=== PATIENT | male | born 2000 | race Two or more races ===

== ENCOUNTER 2021-02-19 15:17 | Emergency (ER) | payer OTHER ==
[2021-02-19 15:23] VITALS: BP 138/95; PULSE 91; RESP 18; TEMP 98
--- NOTE | 2021-02-19 15:47 | ED ---
General Adult HPI - General Chief complaint: Anxiety Stated complaint: Seizure, anxiety Time Seen by Provider: 02/19/21 15:25 Source: patient Mode of arrival: ambulatory Limitations: no limitations - History of Present Illness Initial comments: Dictation was produced using [employer] dictation software. please excuse any grammatical, word or spelling errors. Chief Complaint: 20-year-old male with anxiety reaction History of Present Illness: Is a 20-year-old male presents to the emergency Department with anxiety reaction. Patient has history of seizures he is noncompliant with his seizure medicines. Seizures been managed by his primary care doctor. State his urine emergency department because he feels anxious. He is anxious about his personal life. He recently moved here from an outside city. States that he had a seizure episode yesterday. He understands that he supposed be taking his seizure medicines. States that he's been feeling so anxious recently. He had his covid vaccination yesterday has been feeling some mild L effects from that including poor appetite and fatigue. The ROS documented in this emergency department record has been reviewed and confirmed by me. Those systems with pertinent positive or negative responses have been documented in the HPI. All other systems are other negative and/or noncontributory. PHYSICAL EXAM: General Impression: Alert and oriented x3, not in acute distress HEENT: Normocephalic atraumatic, extra-ocular movements intact, pupils equal and reactive to light bilaterally, mucous membranes moist. Cardiovascular: Heart regular rate and rhythm Chest: Able to complete full sentences, no retractions, no tachypnea Abdomen: abdomen soft, non-tender, non-distended, no organomegaly Musculoskeletal: Pulses present and equal in all extremities, no peripheral edema Motor: no focal deficits noted Neurological: CN II-XII grossly intact, no focal motor or sensory deficits noted Skin: Intact with no visualized rashes Psych: Normal affect and mood ED course: 20-year-old well-appearing male presents emergency department for anxiety reaction. Vital signs upon arrival are within acceptable limits. Physical examination is benign. Patient given 2 small tabs of anxiolytics. Strongly encouraged to follow-up with his primary care doctor for restarting his seizure medicines and to manage his anxiety and outpatient basis. - Related Data Previous Rx's Medication Instructions Recorded ALPRAZolam [Xanax] 0.5 mg PO DAILY PRN 2 Days #2 tab 02/19/21 Allergies Allergy/AdvReac Type Severity Reaction Status Date / Time acetaminophen Allergy Unknown Verified 02/19/21 15:22 Childhood Penicillins Allergy Unknown Verified 02/19/21 15:22 Childhood Review of Systems ROS Statement: Those systems with pertinent positive or pertinent negative responses have been documented in the HPI. ROS Other: All systems not noted in ROS Statement are negative. Past Medical History Past Medical History: Asthma, Hypertension, Seizure Disorder Past Surgical History: No Surgical Hx Reported Past Psychological History: Anxiety Smoking Status: Vaper Past Alcohol Use History: None Reported Past Drug Use History: None Reported General Exam Limitations: no limitations Course Vital Signs 02/19/21 15:19 Temperature 98.0 F Pulse Rate 91 Respiratory 18 Rate Blood Pressure 138/95 O2 Sat by Pulse 99 Oximetry Disposition Clinical Impression: Acute anxiety Disposition: HOME SELF-CARE Condition: Good Instructions (If sedation given, give patient instructions): Generalized Anxiety Disorder (ED) Prescriptions: ALPRAZolam [Xanax] 0.5 mg PO DAILY PRN 2 Days #2 tab PRN Reason: anxiety reaction Is patient prescribed a controlled substance at d/c from ED?: Yes If prescribed controlled substance>3 days was MAPS reviewed?: Prescribed <3 Days Referrals: Nonstaff,Physician [Primary Care Provider] - 1-2 days
== END 2021-02-19 16:03 | disposition home or self-care (01) ==
LOC: EC 15:17
DX: F41.9 Anxiety disorder, unspecified (principal); J45.909 Unspecified asthma, uncomplicated; I10 Essential (primary) hypertension
CPT/HCPCS: 99283

== ENCOUNTER 2021-03-16 20:31 | Emergency (ER) | payer OTHER ==
[2021-03-16 20:48] VITALS: BP 126/81; PULSE 104; RESP 20; TEMP 98.2
--- NOTE | 2021-03-16 22:17 | XR ---
EXAMINATION TYPE: XR knee complete RT DATE OF EXAM: 03/16/2021 COMPARISON: NONE HISTORY: Pain TECHNIQUE: 3 views FINDINGS: I see no fracture nor dislocation. Joint spaces are normal. There are no pathologic calcifi cations. There is no sign of joint effusion. IMPRESSION: Negative right knee exam. No fracture.
--- NOTE | 2021-03-17 00:28 | ED ---
Lower Extremity Injury HPI - General Chief Complaint: Extremity Injury, Lower Stated Complaint: knee injury Time Seen by Provider: 03/16/21 20:51 Source: patient Mode of arrival: ambulatory Limitations: no limitations - History of Present Illness Initial Comments: 20-year-old male presents emergency Department with a chief complaint of right knee pain. This occurred about 2 hours prior to arrival when his friend injured his right knee causing a valgus force. Patient reports she did have previous injuries to that knee that was never surgically repaired. Patient reports now pain with ablation and full extension. Denies any paresthesias or weakness. Reports pain is 6/10. Sharp in nature. Denies any swelling erythema or ecchymosis to the region - Related Data Previous Rx's Medication Instructions Recorded ALPRAZolam [Xanax] 0.5 mg PO DAILY PRN 2 Days #2 tab 02/19/21 Allergies Allergy/AdvReac Type Severity Reaction Status Date / Time acetaminophen Allergy Unknown Verified 02/19/21 15:22 Childhood Penicillins Allergy Unknown Verified 02/19/21 15:22 Childhood Review of Systems ROS Statement: Those systems with pertinent positive or pertinent negative responses have been documented in the HPI. ROS Other: All systems not noted in ROS Statement are negative. Past Medical History Past Medical History: Asthma, Hypertension, Seizure Disorder Past Surgical History: No Surgical Hx Reported Past Psychological History: Anxiety Smoking Status: Vaper Past Alcohol Use History: None Reported Past Drug Use History: None Reported General Exam Limitations: no limitations General appearance: alert, in no apparent distress Head exam: Present: atraumatic, normocephalic, normal inspection Eye exam: Present: normal appearance, PERRL, EOMI Pupils: Present: normal accommodation ENT exam: Present: normal exam, normal oropharynx, mucous membranes moist Neck exam: Present: normal inspection, full ROM Respiratory exam: Present: normal lung sounds bilaterally. Absent: respiratory distress Cardiovascular Exam: Present: regular rate, normal rhythm, normal heart sounds Extremities exam: Present: normal inspection, full ROM, tenderness (Right lateral knee tenderness), normal capillary refill, other (Palpable DP and PT bilaterally. Sensation intact in the right lower extremity.). Absent: calf tenderness Back exam: Present: normal inspection, full ROM Neurological exam: Present: alert, oriented X3 Psychiatric exam: Present: normal affect, normal mood Skin exam: Present: warm, dry, intact, normal color Course Vital Signs 03/16/21 20:45 Temperature 98.2 F Pulse Rate 104 H Respiratory 20 Rate Blood Pressure 126/81 O2 Sat by Pulse 99 Oximetry Medical Decision Making - Medical Decision Making 20-year-old male presents to emergency Department with a chief complaint right knee pain. On Physical examination, is neurovascularly intact. I did offer analgesia, he declined. While waiting for the x-ray results of the knee, patient eloped Disposition Clinical Impression: Right knee injury, Right knee sprain Disposition: HOME SELF-CARE Condition: Stable Instructions (If sedation given, give patient instructions): Knee Sprain (ED) Additional Instructions: Please return to the Emergency Department if symptoms worsen or any other concerns.. Follow with marketing support specialist. Is patient prescribed a controlled substance at d/c from ED?: No Referrals: Nonstaff,Physician [Primary Care Provider] - 1-2 days bL Taveras DO [Doctor of Osteopathic Medicine] - 1-2 days Time of Disposition: 00:28
== END 2021-03-16 22:20 | disposition home or self-care (01) ==
LOC: EC 20:31
DX: S83.91XA Sprain of unspecified site of right knee, initial encounter (principal); J45.909 Unspecified asthma, uncomplicated; I10 Essential (primary) hypertension; F41.9 Anxiety disorder, unspecified
CPT/HCPCS: 99283

== ENCOUNTER 2021-06-20 13:43 | Emergency (ER) | payer OTHER ==
[2021-06-20] MEDS ORDERED: SODIUM CHLORIDE 0.9% 1,000 ML IV STA (16:41)
--- NOTE | 2021-06-20 17:09 | XR ---
EXAMINATION TYPE: XR chest 2V DATE OF EXAM: 06/20/2021 COMPARISON: NONE HISTORY: Cough and fever TECHNIQUE: Frontal and lateral views of the chest are obtained. FINDINGS: There is no focal air space opacity, pleural effusion, or pneumothorax seen. The cardiac silhouette size is within normal limits. The osseous structures are intact. Device overlying the le ft chest anterior subcutaneous soft tissue seen. IMPRESSION: No acute cardiopulmonary process.
[2021-06-20 17:23] LABS: Basophils # (A) 0.4 k/uL (0-0.2); Basophils % (A) 2 %; Eosinophils % (A) 0 %; HCT 54.2 % (39.0-53.0); Hyperchromasia Slight; Lymphocytes # (A) 1.9 k/uL (1.0-4.8); Lymphocytes % (A) 11 %; MCH 29.3 pg (25.0-35.0); MCHC 35.5 g/dL (31.0-37.0); MCV 82.6 fL (80.0-100.0); Mean Platelet Volume 7.2; Monocytes # (A) 1.2 k/uL (0-1.0); Monocytes % (A) 7 %; Neutrophils # (A) 13.3 k/uL (1.3-7.7); Neutrophils % (A) 78 %; Platelet Count 261 k/uL (150-450); RBC 6.57 m/uL (4.30-5.90); RDW 12.9 % (11.5-15.5); WBC 17.2 k/uL (4.0-11.0)
[2021-06-20 17:31] LABS: ALT 81 U/L (4-49); AST 49 U/L (17-59); African American GFR (CKD) >90 (>60 ml/min/1.73 sqM); Albumin 4.6 g/dL (3.5-5.0); Alkaline Phosphatase 64 U/L (38-126); Anion Gap 12 mmol/L; Blood Urea Nitrogen 18 mg/dL (9-20); Calcium 10.1 mg/dL (8.4-10.2); Carbon Dioxide 28 mmol/L (22-30); Chloride 100 mmol/L (98-107); Glucose 96 mg/dL (74-99); Non-African American GFR(CKD) >90 (>60 ml/min/1.73 sqM); Potassium 4.6 mmol/L (3.5-5.1); Sodium 140 mmol/L (137-145); Total Bilirubin 0.6 mg/dL (0.2-1.3)
[2021-06-20 17:42] LABS: HGB 19.2 gm/dL (13.0-17.5)
[2021-06-20 18:29] VITALS: BP 138/74; PULSE 84; RESP 16
--- NOTE | 2021-06-20 18:43 | ED ---
URI HPI - General Chief Complaint: Upper Respiratory Infection Stated Complaint: ANTHONY,Dizziness,Fever Time Seen by Provider: 06/20/21 16:25 Source: patient, RN notes reviewed, old records reviewed Mode of arrival: ambulatory Limitations: no limitations - History of Present Illness Initial Comments: Patient is a 20-year-old transgender male presenting to the emergency Department with complaints of a cough, body aches and feeling weaker over the past week. Patient states he went to urgent care twice over the past week, had multiple covid and flu tests and they were all negative. Patient was prescribed azithromycin and steroids, he is currently still on these but he came in today because he continues to feel weak and he felt like he might pass out at work today. He continues to have a cough, generalized body aches. No fevers. He does have chills. He does have history mild asthma, no shortness of breath today. He denies abdominal pain, nausea or vomiting, no diarrhea. He denies any areas of specific pains. He has no further complaints. Upon arrival to the ER, his vitals are stable. - Related Data Home Medications Medication Instructions Recorded Confirmed Azithromycin [Zithromax Z-pack (6 See Taper PO DIRECTED 06/20/21 06/20/21 tabs)] Promethaz-Cod 6.25-10 mg/5 ml 5 ml PO Q6HR PRN 06/20/21 06/20/21 [Phenergan with Codeine] Testosterone Cypionate 200 mg IM Q14D 06/20/21 06/20/21 [Depo-Testosterone] Previous Rx's Medication Instructions Recorded Albuterol Inhaler [Ventolin Hfa 1 puff INHALATION RT-TID PRN #8 gm 06/20/21 Inhaler] Allergies Allergy/AdvReac Type Severity Reaction Status Date / Time acetaminophen Allergy Unknown Verified 06/20/21 18:10 Childhood Penicillins Allergy Unknown Verified 06/20/21 18:10 Childhood Review of Systems ROS Statement: Those systems with pertinent positive or pertinent negative responses have been documented in the HPI. ROS Other: All systems not noted in ROS Statement are negative. Past Medical History Past Medical History: Asthma, Hypertension, Seizure Disorder History of Any Multi-Drug Resistant Organisms: None Reported Past Surgical History: No Surgical Hx Reported Past Psychological History: Anxiety Smoking Status: Vaper Past Alcohol Use History: None Reported Past Drug Use History: None Reported General Exam - General Exam Comments Initial Comments: GENERAL: Patient is well-developed and well-nourished. Patient is nontoxic and in no acute distress. HEAD: Atraumatic, normocephalic. EYES: Pupils equal round and reactive to light, extraocular movements intact, sclera anicteric, conjunctiva are normal. Eyelids were unremarkable. ENT: TMs normal, nares patent, oropharynx clear without exudates. Moist mucous membranes. NECK: Normal range of motion, supple without lymphadenopathy or JVD. LUNGS: Unlabored respirations. Breath sounds clear to auscultation bilaterally and equal. No wheezes rales or rhonchi. HEART: Regular rate and rhythm without murmurs, rubs or gallops. ABDOMEN: Soft, nontender, normoactive bowel sounds. No guarding, no rebound. No masses appreciated. MUSCULOSKELETAL: Normal extremities with adequate strength and normal range of motion, no pitting or edema. No clubbing or cyanosis. NEUROLOGICAL: Patient is alert and oriented x 3. SKIN: Warm, Dry, normal turgor, no rashes or lesions noted. Limitations: no limitations Course Vital Signs 06/20/21 06/20/21 14:26 18:28 Temperature 98.5 F 98.1 F Pulse Rate 102 H 84 Respiratory 20 16 Rate Blood Pressure 142/86 138/74 O2 Sat by Pulse 97 97 Oximetry Procedures - [place] Protocol (Time Out) Nurse: Jacqueline Jimenez Medical Decision Making - Medical Decision Making Patient is a 20-year-old male here with upper respiratory complaints over the past week. No fevers, his vitals are stable. He is currently on azithromycin and steroid pack. He's had negative Covid test and flu test this past week. His rapid Covid test today is negative. Chest x-ray showed no acute abnormality. Patient had a presyncopal event at work today, did order basic labs. Labs revealed a white count of 17.2, this could be to his current steroid use. His hemoglobin returned high at 19.2. Everything else within normal limits. Patient denies his hemoglobin been elevated in the past. He does admit to being transgender, he takes testosterone for the past 2 years every 2 weeks. He denies being a smoker, he does vape. Denies any other drug use. Patient received some fluids here in the ER, is resting comfortably. His vitals remained stable. Patient states he does see his doctors regularly. I discussed these findings with him. I urged him to follow up with his primary care in the next few days. I will also give him referral to hematology. He is agreeable to this plan of care. Strict return parameters were discussed with the patient and he verbalized understanding. Case discussed with Dr. Zamora who is in agreement with this plan of care. - Lab Data Result diagrams: 06/20/21 17:02 06/20/21 17:02 Lab Results 06/20/21 06/20/21 06/20/21 Range/Units 14:32 17:02 17:02 WBC 17.2 H (4.0-11.0) k/uL RBC 6.57 H (4.30-5.90) m/uL Hgb 19.2 H* (13.0-17.5) gm/dL Hct 54.2 H (39.0-53.0) % MCV 82.6 (80.0-100.0) fL MCH 29.3 (25.0-35.0) pg MCHC 35.5 (31.0-37.0) g/dL RDW 12.9 (11.5-15.5) % Plt Count 261 (150-450) k/uL MPV 7.2 Neutrophils % 78 % Lymphocytes % 11 % Monocytes % 7 % Eosinophils % 0 % Basophils % 2 % Neutrophils # 13.3 H (1.3-7.7) k/uL Lymphocytes # 1.9 (1.0-4.8) k/uL Monocytes # 1.2 H (0-1.0) k/uL Eosinophils # 0.0 (0-0.7) k/uL Basophils # 0.4 H (0-0.2) k/uL Manual Slide Review Performed Hyperchromasia Slight Sodium 140 (137-145) mmol/L Potassium 4.6 (3.5-5.1) mmol/L Chloride 100 (98-107) mmol/L Carbon Dioxide 28 (22-30) mmol/L Anion Gap 12 mmol/L BUN 18 (9-20) mg/dL Creatinine 0.89 (0.66-1.25) mg/dL Est GFR (CKD-EPI)AfAm >90 (>60 ml/min/1.73 sqM) Est GFR (CKD-EPI)NonAf >90 (>60 ml/min/1.73 sqM) Glucose 96 (74-99) mg/dL Calcium 10.1 (8.4-10.2) mg/dL Total Bilirubin 0.6 (0.2-1.3) mg/dL AST 49 (17-59) U/L ALT 81 H (4-49) U/L Alkaline Phosphatase 64 (38-126) U/L Total Protein 8.0 (6.3-8.2) g/dL Albumin 4.6 (3.5-5.0) g/dL Coronavirus (PCR) Not Detected (Not Detectd) Disposition Clinical Impression: Acute upper respiratory infection, Polycythemia Disposition: HOME SELF-CARE Condition: Stable Instructions (If sedation given, give patient instructions): Upper Respiratory Infection (ED) Additional Instructions: Please return to the Emergency Department if symptoms worsen or any other concerns. Continue on the prescribed antibiotic and steroids for upper respiratory infection. Use inhaler as needed for cough or shortness of breath. Please follow-up with your primary care physician as well as hematology regarding elevated hemoglobin levels. Prescriptions: Albuterol Inhaler [Ventolin Hfa Inhaler] 1 puff INHALATION RT-TID PRN #8 gm PRN Reason: Shortness Of Breath Is patient prescribed a controlled substance at d/c from ED?: No Referrals: None,Stated [Primary Care Provider] - 1-2 days Cayden Bailey MD [STAFF PHYSICIAN] - 1-2 days Time of Disposition: 18:49 Decision Time: 18:41
[2021-06-20 19:18] VITALS: TEMP 98
== END 2021-06-20 19:18 | disposition home or self-care (01) ==
LOC: EC 13:43
DX: J06.9 Acute upper respiratory infection, unspecified (principal); D75.1 Secondary polycythemia; I10 Essential (primary) hypertension; Z79.899 Other long term (current) drug therapy; Z88.0 Allergy status to penicillin; F17.290 Nicotine dependence, other tobacco product, uncomplicated; Z20.822 Contact with and (suspected) exposure to COVID-19
CPT/HCPCS: 36415; 71046; 80053; 85025; 87635; 96360; 99285

== ENCOUNTER → 2022-01-09 | Outpatient (CLI) | payer OTHER ==
[2022-01-09 18:20] LABS: Basophils # (A) 0.03 X 10*3/uL (0.00-0.10); Basophils % (A) 0.4 %; Eosinophils # (A) 0.13 X 10*3/uL (0.04-0.35); Eosinophils % (A) 1.7 %; HCT 52.7 % (39.6-50.0); HGB 17.8 g/dL (13.0-17.0); Immature Grans, Automated 1.2 %; Lymphocytes # (A) 1.95 X 10*3/uL (0.90-5.00); Lymphocytes % (A) 25.9 %; MCHC 33.8 g/dL (32.0-37.0); MCV 82.9 fL (80.0-97.0); Mean Platelet Volume 9.7 fL (9.5-12.2); Monocytes # (A) 0.72 X 10*3/uL (0.20-1.00); Monocytes % (A) 9.6 %; NRBC Per 100 WBC 0 /100 WBCS (0.0-0.0); Neutrophils # (A) 4.61 X 10*3/uL (1.80-7.70); Neutrophils % (A) 61.2 %; Platelet Count 244 X 10*3/uL (140-440); RBC 6.36 X 10*6/uL (4.40-5.60); RDW 12.6 % (11.5-14.5); WBC 7.53 X 10*3/uL (4.50-10.00)
[2022-01-09 19:02] LABS: African American GFR (CKD) 99.6 (60.0-200.0); BUN/Creat Ratio 8.67 Ratio (12.00-20.00); Blood Urea Nitrogen 10.4 mg/dL (9.0-27.0); Calcium 9.8 mg/dL (8.7-10.3); Carbon Dioxide 28.9 mmol/L (20.0-27.5); Chloride 102 mmol/L (96-109); Chol/HDL Ratio 3.19 Ratio; Estradiol 64.9 pg/mL; Glucose 84 mg/dL (70-110); LDL Cholesterol,Calculated 92.4 mg/dL (0.0-131.0); Non-African American GFR(CKD) 85.9 (60.0-200.0); Potassium 4.3 mmol/L (3.5-5.5); Sodium 142 mmol/L (135-145); VLDL Calculation 16.82 mg/dL (5.00-40.00)
== END | disposition home or self-care (01) ==
LOC: LABWHC1 10:44
PROVIDERS: ATTEND Internal Medicine Endocrinology, Diabetes & Metabolism
DX: F64.9 Gender identity disorder, unspecified (principal); E66.9 Obesity, unspecified
CPT/HCPCS: 36415; 80048; 80061; 82670; 83036; 84270; 84403; 84439; 84443; 85025

== ENCOUNTER → 2022-03-10 | Outpatient (CLI) | payer OTHER ==
[2022-03-10 10:37] LABS: HCT 48.2 % (39.6-50.0); HGB 16.9 g/dL (13.0-17.0); MCHC 35.1 g/dL (32.0-37.0); MCV 79.8 fL (80.0-97.0); Mean Platelet Volume 9.5 fL (9.5-12.2); NRBC Per 100 WBC 0 /100 WBCS (0.0-0.0); Platelet Count 264 X 10*3/uL (140-440); RBC 6.04 X 10*6/uL (4.40-5.60); RDW 12.6 % (11.5-14.5); WBC 8.25 X 10*3/uL (4.50-10.00)
== END | disposition home or self-care (01) ==
LOC: LABWHC1 07:48
PROVIDERS: ATTEND Internal Medicine Endocrinology, Diabetes & Metabolism
DX: F64.0 Transsexualism (principal); Z79.899 Other long term (current) drug therapy
CPT/HCPCS: 36415; 82670; 84402; 85027

== ENCOUNTER 2023-04-21 12:24 | Emergency (ER) | payer OTHER ==
[2023-04-21 12:29] VITALS: RESP 18
[2023-04-21] MEDS ORDERED: KETOROLAC 15 MG/ML 1 ML VIAL IM STA (12:46)
--- NOTE | 2023-04-21 12:54 | ED ---
Back Pain HPI - General Chief Complaint: Back Pain/Injury Stated Complaint: Fall, L Arm Numbness Time Seen by Provider: 04/21/23 12:30 Source: patient Limitations: no limitations - History of Present Illness Initial Comments: 22-year-old male presents to ED with a chief complaint of fall. Patient states that he was riding his long board when he hit a pothole causing him to jump up and off the long board landing on his back. This was witnessed by his friend. There is no head injury or LOC at this time. Patient now notes left sided upper and lower back pain. Denies any injury to his extremities however notes some numbness and tingling in his left arm and left leg. Denies nausea or vomiting. Per at bedside, patient acting his normal self. No other complaints. - Related Data Home Medications Medication Instructions Recorded Confirmed Azithromycin [Zithromax Z-pack (6 See Taper PO DIRECTED 06/20/21 06/20/21 tabs)] Promethaz-Cod 6.25-10 mg/5 ml 5 ml PO Q6HR PRN 06/20/21 06/20/21 [Phenergan with Codeine] Testosterone Cypionate 200 mg IM Q14D 06/20/21 06/20/21 [Depo-Testosterone] Previous Rx's Medication Instructions Recorded Albuterol Inhaler [Ventolin Hfa 1 puff INHALATION RT-TID PRN #8 gm 06/20/21 Inhaler] Allergies Allergy/AdvReac Type Severity Reaction Status Date / Time acetaminophen Allergy Unknown Verified 06/20/21 18:10 Childhood Penicillins Allergy Unknown Verified 06/20/21 18:10 Childhood Review of Systems ROS Statement: Those systems with pertinent positive or pertinent negative responses have been documented in the HPI. ROS Other: All systems not noted in ROS Statement are negative. Past Medical History Past Medical History: Asthma, Hypertension, Seizure Disorder History of Any Multi-Drug Resistant Organisms: None Reported Past Surgical History: No Surgical Hx Reported Additional Past Surgical History / Comment(s): mastectomy bilat 07/04/22 Past Psychological History: Anxiety Smoking Status: Vaper Past Alcohol Use History: None Reported Past Drug Use History: None Reported General Exam Limitations: no limitations General appearance: alert, in no apparent distress Head exam: Present: atraumatic, normocephalic (No simeon signs or raccoons eyes.) Eye exam: Present: normal appearance, PERRL, EOMI ENT exam: Present: mucous membranes moist Neck exam: Present: normal inspection, other (No midline cervical spinal tenderness to palpation.) Respiratory exam: Present: normal lung sounds bilaterally Cardiovascular Exam: Present: regular rate, normal rhythm GI/Abdominal exam: Present: soft (No tenderness to palpation. No rebound guarding or rigidity.) Extremities exam: Present: other (Full active range of motion of bilateral upper and lower extremities. Strength and sensation intact. DP/PT pulses 2+. Radial pulses 2+.) Back exam: Present: other (Left paraspinal thoracic and lumbar spinal tenderness to palpation. No midline spinal tenderness to palpation.) Neurological exam: Present: alert, oriented X3, CN II-XII intact, other (GCS 15) Skin exam: Present: warm, dry Course Vital Signs 04/21/23 12:26 Temperature 99.4 F Pulse Rate 117 H Respiratory 18 Rate Blood Pressure 137/87 O2 Sat by Pulse 99 Oximetry Medical Decision Making - Medical Decision Making Was pt. sent in by a medical professional or institution ([facility], STATE'S ATTORNEY, urgent care, hospital, or penitentiary...) When possible be specific @ -No Did you speak to anyone other than the patient for history (EMS, parent, family, police, friend...)? What history was obtained from this source @ -Spoke to the patient's fianc who reports that the patient has been acting his normal self since the fall. No nausea or vomiting. Did you review nursing and triage notes (agree or disagree)? Why? @ -I reviewed and agree with nursing and triage notes Were old charts reviewed (outside hosp., previous admission, EMS record, old EKG, old radiological studies, urgent care reports/EKG's, penitentiary records)? Report findings @ -No old charts were reviewed Differential Diagnosis (chest pain, altered mental status, abdominal pain women, abdominal pain men, vaginal bleeding, weakness, fever, dyspnea, syncope, headache, dizziness, GI bleed, back pain, seizure, CVA, palpatations, mental health, musculoskeletal)? @ -Differential Musculoskeletal Muscular strain, contusion, ligament sprain, fracture, arthritis, septic arthritis, bursitis, cellulitis, muscle spasm, nerve compression, DVT, arterial occlusion, herpes zoster, electrolyte abnormality, tumor.... This is not meant to be in all inclusive list EKG interpreted by me (3pts min.). @ -None X-rays interpreted by me (1pt min.). @ -X-ray of the chest, cervical spine, lumbar spine showed no acute process. CT interpreted by me (1pt min.). @ -None done U/S interpreted by me (1pt. min.). @ -None done What testing was considered but not performed or refused? (CT, X-rays, U/S, labs)? Why? @ -None What meds were considered but not given or refused? Why? @ -None Did you discuss the management of the patient with other professionals (professionals i.e. Dr., PA, STATE'S ATTORNEY, lab, RT, psych nurse, social worker delinquency prevention, ear specialist, teacher, executive officer special warfare team, rn field case manager)? Give summary @ -No Was smoking cessation discussed for >3mins.? @ -No Was critical care preformed (if so, how long)? @ -No Were there social determinants of health that impacted care today? How? (Homelessness, low income, unemployed, alcoholism, drug addiction, transportation, low edu. Level, literacy, decrease access to med. care, retirement, rehab)? @ -No Was there de-escalation of care discussed even if they declined (Discuss DNR or withdrawal of care, Hospice)? DNR status @ -No What co-morbidities impacted this encounter? (DM, HTN, Smoking, COPD, CAD, Cancer, CVA, ARF, Chemo, Hep., AIDS, mental health diagnosis, sleep apnea, morbid obesity)? @ -None Was patient admitted / discharged? Hospital course, mention meds given and route, prescriptions, significant lab abnormalities, going to OR and other pertinent info. @ -Discharge. Imaging studies here unremarkable for acute process. Urinalysis reveals no blood. Patient had great improvement of pain with Toradol. Patient discharged home in stable condition. Discussed return precautions patient verbalizes agreement. Undiagnosed new problem with uncertain prognosis? @ -No Drug Therapy requiring intensive monitoring for toxicity (Heparin, Nitro, Insulin, Cardizem)? @ -No Were any procedures done? @ -No Diagnosis/symptom? @ -Fall off long board, back pain Acute, or Chronic, or Acute on Chronic? @ -Acute Uncomplicated (without systemic symptoms) or Complicated (systemic symptoms)? @ -Uncomplicated Side effects of treatment? @ -No Exacerbation, Progression, or Severe Exacerbation? @ -No Poses a threat to life or bodily function? How? (Chest pain, [place], [place], pneumonia, PE, COPD, DKA, ARF, appy, cholecystitis, CVA, Diverticulitis, Homicidal, Suicidal, threat to staff... and all critical care pts) @ -No - Lab Data Lab Results 04/21/23 Range/Units 12:53 Urine Color Yellow Urine Appearance Clear (Clear) Urine pH 6.0 (5.0-8.0) Ur Specific [place] 1.024 (1.001-1.035) Urine Protein 1+ H (Negative) Urine Glucose (UA) Negative (Negative) Urine Ketones Negative (Negative) Urine Blood Negative (Negative) Urine Nitrite Negative (Negative) Urine Bilirubin Negative (Negative) Urine Urobilinogen <2.0 (<2.0) mg/dL Ur Leukocyte Esterase Large H (Negative) Urine RBC 1 (0-5) /hpf Urine WBC 3 (0-5) /hpf Ur Squamous Epith Cells 2 (0-4) /hpf Urine Mucus Moderate H (None) /hpf Disposition Clinical Impression: Fall from skateboard, Back pain Disposition: HOME SELF-CARE Condition: Good Instructions (If sedation given, give patient instructions): Back Pain (ED) Additional Instructions: Please return to the Emergency Department if symptoms worsen or any other concerns. Is patient prescribed a controlled substance at d/c from ED?: No Referrals: Marlee Hinojosa MD [Primary Care Provider] - 1-2 days Time of Disposition: 13:33
--- NOTE | 2023-04-21 13:19 | XR ---
EXAMINATION TYPE: XR lumbar spine 2 or 3V DATE OF EXAM: 04/21/2023 1:12 PM INDICATION: Patient age:Male; 22 years old; Reason for study: left paraspinal low back pain; COMPARISON: None TECHNIQUE: Frontal, lateral and coned in L5-S1 lateral views of the spine. FINDINGS: No evidence of any acute osseous pathology. No evidence of loss of vertebral body height i s seen. There is normal alignment of the lumbar vertebral bodies. Mild osteophyte formation throughou t the spine. Facet arthropathy is present. No evidence for significant neural foraminal stenosis. IMPRESSION: 1. No acute fracture. 2. Minimal multilevel disc degeneration.
[2023-04-21 13:20] LABS: Appearance,Urine Clear (Clear); Bilirubin,Urine Negative (Negative); Blood,Urine Negative (Negative); Color,Urine Yellow; Glucose,Urine (UA) Negative (Negative); Ketones,Urine Negative (Negative); Leukocyte Esterase,Urine Large (Negative); Mucus,Urine Moderate /hpf; Nitrite,Urine Negative (Negative); Protein,Urine 1+ (Negative); RBC,Urine 1 /hpf (0-5); Specific Gravity,Urine 1.024 (1.001-1.035); Squamous Epithelial Cell,Urine 2 /hpf (0-4); Urobilinogen,Urine <2.0 mg/dL (<2.0); WBC,Urine 3 /hpf (0-5)
--- NOTE | 2023-04-21 13:20 | XR ---
EXAMINATION TYPE: XR chest 2V DATE OF EXAM: 04/21/2023 1:12 PM COMPARISON: Chest radiographs from 06/20/2021 TECHNIQUE: XR chest 2V Frontal and lateral views of the chest. CLINICAL INDICATION:Male, 22 years old with history of left thoracic paraspinal pain r/o thoracic/rib fx/; FINDINGS: Lungs/Pleura: There is no evidence of pleural effusion, focal consolidation, or pneumothorax. Pulmonary vascularity: Unremarkable. Heart/mediastinum: Cardiomediastinal silhouette is unremarkable. Musculoskeletal: No acute osseous pathology. IMPRESSION: No acute cardiopulmonary disease/process.
--- NOTE | 2023-04-21 13:21 | XR ---
EXAMINATION TYPE: XR cervical spine comp DATE OF EXAM: 04/21/2023 1:12 PM INDICATION: Patient age:Male; 22 years old; Reason for study: neck pain s/p fall; COMPARISON: None TECHNIQUE: The cervical spine was imaged in frontal, lateral, odontoid and bilateral oblique. FINDINGS: The osseous structures show normal alignment without evidence of an acute fracture. Minimal osteophyt e formation and facet joint and uncovertebral joint arthropathy. Pedicles are intact. Soft tissues a re within normal limits. The odontoid appears intact. IMPRESSION: 1. No fracture or dislocation. 2. Minimal degenerative disc disease changes of the cervical spine.
[2023-04-21 13:42] VITALS: BP 129/72; PULSE 99; TEMP 98.7
== END 2023-04-21 13:38 | disposition home or self-care (01) ==
LOC: EC 12:24
DX: M54.50 Low back pain, unspecified (principal); M54.6 Pain in thoracic spine; I10 Essential (primary) hypertension; J45.909 Unspecified asthma, uncomplicated; F17.290 Nicotine dependence, other tobacco product, uncomplicated; Z79.899 Other long term (current) drug therapy; Z88.0 Allergy status to penicillin; Z88.6 Allergy status to analgesic agent; V00.131A Fall from skateboard, initial encounter; Y93.51 Activity, roller skating (inline) and skateboarding
CPT/HCPCS: 81001; 72050; 72100; 71046; 99283; 96372; J1885

== ENCOUNTER → 2023-11-01 | Outpatient (CLI) | payer OTHER ==
--- NOTE | 2023-11-01 19:44 | CT ---
EXAMINATION TYPE: CT abdomen pelvis w con DATE OF EXAM: 11/01/2023 COMPARISON: None INDICATION: RLQ abdominal pain x 2 weeks. DLP: 1168.6 mGycm, Automated exposure control for dose reduction was used. CONTRAST: 100 mL of Isovue 300. Study performed with Oral Contrast TECHNIQUE: Axial images were obtained from above the diaphragm to the pubic rami in the axial plane a t 5 mm thick sections. Reconstructed images are reviewed on the computer in the coronal plane. FINDINGS: Limited CT sections are obtained the lung bases. The lung bases are clear. CT ABDOMEN: Liver: Normal Spleen: Normal Pancreas: Normal Adrenal glands: The adrenal glands are normal. Gallbladder: Normal Kidneys: No masses are evident. No hydronephrosis is present. No cysts are present. No obvious khari al stones are evident. Delayed images were obtained through the kidneys which remain unremarkable. Aorta: Normal Inferior vena cava: Normal. CT PELVIS: Loops of bowel within the abdomen and pelvis are normal. Oral contrast extends to the distal small b owel loops. Colon is visualized. Unremarkable. There are loops of bowel which are incompletely dist ended or lack oral contrast limiting their evaluation. Appendix: Normal as visualized. No adjacent inflammatory changes or dilated tubular structures eviden t. Urinary bladder: Normal. Genitourinary structures: There is a uterus present. Bilateral ovaries are identified. Small follicle s may be present. Osseous structures: No suspicious lytic or sclerotic lesions. IMPRESSION: 1. No suspicious right lower quadrant abnormality to account for right lower quadrant pain. The appe ndix is normal.
== END | disposition home or self-care (01) ==
LOC: RADCTMAIN 16:31
PROVIDERS: ATTEND Family Medicine
DX: R10.31 Right lower quadrant pain (principal); R11.0 Nausea
CPT/HCPCS: 74177; Q9967

== ENCOUNTER 2024-12-01 19:23 | Emergency (ER) | payer OTHER ==
[2024-12-01 19:32] VITALS: TEMP 99.3
--- NOTE | 2024-12-01 20:17 | ED ---
Chest Pain HPI - General Source: patient, RN notes reviewed Mode of arrival: ambulatory Limitations: no limitations <Talya Sanchez - Last Filed: 12/01/24 22:38> <Ashley Viramontes - Last Filed: 12/02/24 19:26> - General Chief Complaint: Chest Pain Stated Complaint: Chest pains Time Seen by Provider: 12/01/24 20:14 - History of Present Illness Initial Comments: 23-year-old male presenting for left sided chest pain for 6 hours. States this afternoon he randomly began to notice left-sided chest cramping and pain down his left arm. Endorses associated shakiness and lightheadedness. States he experienced similar symptoms 2 years ago where he went to [facility] and was discharged with negative testing. Denies injury or trauma. Denies shortness of breath. States he recently started Lamictal 2 days ago as a mood stabilizer. (Talya Sanchez) - Related Data Home Medications Medication Instructions Recorded Confirmed Azithromycin [Zithromax Z-pack (6 See Taper PO DIRECTED 06/20/21 06/20/21 tabs)] Promethaz-Cod 6.25-10 mg/5 ml 5 ml PO Q6HR PRN 06/20/21 06/20/21 [Phenergan with Codeine] Testosterone Cypionate 200 mg IM Q14D 06/20/21 06/20/21 [Depo-Testosterone] Previous Rx's Medication Instructions Recorded Albuterol Inhaler [Ventolin Hfa 1 puff INHALATION RT-TID PRN #8 gm 06/20/21 Inhaler] Allergies Allergy/AdvReac Type Severity Reaction Status Date / Time Penicillins Allergy Unknown Verified 12/01/24 19:33 Childhood Review of Systems ROS Other: All systems not noted in ROS Statement are negative. <Talya Sanchez - Last Filed: 12/01/24 22:38> ROS Other: All systems not noted in ROS Statement are negative. <Ashley Viramontes - Last Filed: 12/02/24 19:26> ROS Statement: Those systems with pertinent positive or pertinent negative responses have been documented in the HPI. EKG Findings - EKG Results: EKG: interpreted by ERMD (EKG reveals normal sinus rhythm with S1Q3T3. Ventricular rate 96 bpm, MA interval 139, QRS duration 107, QT/QTc 338/392) <Talya Sanchez - Last Filed: 12/01/24 22:38> Past Medical History Past Medical History: Asthma, Hypertension, Seizure Disorder History of Any Multi-Drug Resistant Organisms: None Reported Past Surgical History: No Surgical Hx Reported Additional Past Surgical History / Comment(s): mastectomy bilat 07/04/22 Past Psychological History: Anxiety Smoking Status: Vaper Past Alcohol Use History: None Reported Past Drug Use History: None Reported <Talya Sanchez - Last Filed: 12/01/24 22:38> General Exam Limitations: no limitations General appearance: alert, in no apparent distress Head exam: Present: atraumatic, normocephalic, normal inspection Eye exam: Present: normal appearance, PERRL, EOMI. Absent: scleral icterus, conjunctival injection, periorbital swelling ENT exam: Present: normal exam, mucous membranes moist Neck exam: Present: normal inspection. Absent: tenderness, meningismus, lymphadenopathy Respiratory exam: Present: normal lung sounds bilaterally. Absent: respiratory distress, wheezes, rales, rhonchi, stridor, chest wall tenderness (No reproducible tenderness) Cardiovascular Exam: Present: regular rate, normal rhythm, normal heart sounds. Absent: systolic murmur, diastolic murmur, rubs, gallop, clicks Neurological exam: Present: alert, oriented X3 Psychiatric exam: Present: normal affect, normal mood Skin exam: Present: warm, dry, intact, normal color. Absent: rash <Talya Sanchez - Last Filed: 12/01/24 22:38> Course Vital Signs 12/01/24 12/01/24 12/01/24 19:27 19:56 21:30 Temperature 99.3 F Pulse Rate 110 H 85 Pulse Rate [ 110 H Pulse Oximetery ] Respiratory 20 16 Rate Blood Pressure 147/86 145/84 O2 Sat by Pulse 98 97 Oximetry Chest Pain MDM <Talya Sanchez - Last Filed: 12/01/24 22:38> <Ashley Viramontes - Last Filed: 12/02/24 19:26> - MDM Was pt. sent in by a medical professional or institution (, PA, [employer], urgent ca re, hospital, or fpc...) When possible be specific @ -No Did you speak to anyone other than the patient for history (EMS, parent, family, police, friend...)? What history was obtained from this source @ -No Did you review nursing and triage notes (agree or disagree)? Why? @ -I reviewed and agree with nursing and triage notes Were old charts reviewed (outside hosp., previous admission, EMS record, old EKG, old radiological studies, urgent care reports/EKG's, fpc records)? Report findings @ -No old charts were reviewed Differential Diagnosis (chest pain, altered mental status, abdominal pain women, abdominal pain men, vaginal bleeding, weakness, fever, dyspnea, syncope, headache, dizziness, GI bleed, back pain, seizure, CVA, palpatations, mental health, musculoskeletal)? @ -Differential Chest Pain: Stable Angina, Unstable Angina, STEMI, NSTEMI Aortic Dissection, Pneumothorax, Musculoskeletal, Esophageal Spasm GERD, Cholecystitis, Pancreatitis, Zoster, this is not meant to be an all-inclusive list. EKG interpreted by me (3pts min.). @ -As above X-rays interpreted by me (1pt min.). @ -Chest x-ray reveals no acute process CT interpreted by me (1pt min.). @ -None done U/S interpreted by me (1pt. min.). @ -None done What testing was considered but not performed or refused? (CT, X-rays, U/S, labs)? Why? @ -CT would have been recommended to rule out PE due to D-dimer of 0.53 however patient left AGAINST MEDICAL ADVICE What meds were considered but not given or refused? Why? @ -None Did you discuss the management of the patient with other professionals (stephane larson i.e. , PA, [employer], lab, RT, psych nurse, social group worker, curator medical museum, teacher, dental officer, bottle caser)? Give summary @ -No Was smoking cessation discussed for >3mins.? @ -No Was critical care preformed (if so, how long)? @ -No Were there social determinants of health that impacted care today? How? (Homelessness, low income, unemployed, alcoholism, drug addiction, transportation, low edu. Level, literacy, decrease access to med. care, senior living, rehab)? @ -No Was there de-escalation of care discussed even if they declined (Discuss DNR or withdrawal of care, Hospice)? DNR status @ -No What co-morbidities impacted this encounter? (DM, HTN, Smoking, COPD, CAD, Cancer, CVA, ARF, Chemo, Hep., AIDS, mental health diagnosis, sleep apnea, morbid obesity)? @ -None Was patient admitted / discharged? Hospital course, mention meds given and route, prescriptions, significant lab abnormalities, going to OR and other pertinent info. @ -Patient left AGAINST MEDICAL ADVICE. This is a 23-year-old female presenting for left-sided chest pain. Patient is tachycardic at 110 bpm, temperature 99.3. Patient is well-appearing and in no acute distress. Pain is nonreproducible. White blood cell count stable at 9.2, troponin undetectable, significant D-dimer of 0.53. EKG reveals normal sinus rhythm with S1Q3T3 changes. Chest x-ray reveals no acute process. Repeat heart rate normal at 85 bpm. I was notified by the nurse that patient left AGAINST MEDICAL ADVICE prior to discussing results. I attempted to call patient to notify him of the elevated D-dimer and recommend he return to the hospital for CT scan to rule out PE, however the call was not answered. Case was discussed with my ED attending Dr. Viramontes. Undiagnosed new problem with uncertain prognosis? @ -No Drug Therapy requiring intensive monitoring for toxicity (Heparin, Nitro, Insulin, Cardizem)? @ -No Were any procedures done? @ -No Diagnosis/symptom? @ -Chest pain Acute, or Chronic, or Acute on Chronic? @ -Acute Uncomplicated (without systemic symptoms) or Complicated (systemic symptoms)? @ -Complicated Side effects of treatment? @ -No Exacerbation, Progression, or Severe Exacerbation? @ -No Poses a threat to life or bodily function? How? (Chest pain, [place], [place], pneumonia, PE, COPD, DKA, ARF, appy, cholecystitis, CVA, Diverticulitis, Homicidal, Suicidal, threat to staff... and all critical care pts) @ -Yes possibly PE could lead to (Talya Sanchez) Case was discussed with and presented to myself by physician's medical assistant dermatology, Talya. Unfortunately, patient had left the ER against medical advise prior to case presentation to myself. We discussed attempting to call patient back regarding tachycardia elevated D-dimer 0.53, advised him to return for PE study however he was ultimately unable to be reached. (Ashley Viramontes) Disposition Time of Disposition: 22:16 <Talya Sanchez - Last Filed: 12/01/24 22:38> <Ashley Viramontes - Last Filed: 12/02/24 19:26> Clinical Impression: Chest pain Disposition: LEFT AGAINST MEDICAL ADVICE Condition: Undetermined Referrals: Mag King DO [Primary Care Provider] - 1-2 days
[2024-12-01 20:46] LABS: Basophils # (A) 0.1 k/uL (0-0.2); Basophils % (A) 1 %; Eosinophils # (A) 0.1 k/uL (0-0.7); Eosinophils % (A) 1 %; HCT 46.8 % (39.0-53.0); HGB 16.6 gm/dL (13.0-17.5); Lymphocytes # (A) 2.2 k/uL (1.0-4.8); Lymphocytes % (A) 24 %; MCH 28.1 pg (25.0-35.0); MCHC 35.4 g/dL (31.0-37.0); MCV 79.4 fL (80.0-100.0); Mean Platelet Volume 6.8; Monocytes # (A) 0.5 k/uL (0-1.0); Monocytes % (A) 5 %; Neutrophils # (A) 6.2 k/uL (1.3-7.7); Neutrophils % (A) 67 %; Platelet Count 264 k/uL (150-450); RBC 5.89 m/uL (4.30-5.90); RDW 12.6 % (11.5-15.5); WBC 9.2 k/uL (3.8-10.6)
[2024-12-01 20:56] LABS: ALT 52 U/L (4-49); AST 31 U/L (17-59); African American GFR (CKD) >90 (>60 ml/min/1.73 sqM); Albumin 4.9 g/dL (3.5-5.0); Alkaline Phosphatase 56 U/L (38-126); Anion Gap 12 mmol/L; Blood Urea Nitrogen 13 mg/dL (9-20); Calcium 10.1 mg/dL (8.4-10.2); Carbon Dioxide 26 mmol/L (22-30); Chloride 103 mmol/L (98-107); Glucose 103 mg/dL (74-99); Non-African American GFR(CKD) >90 (>60 ml/min/1.73 sqM); Sodium 141 mmol/L (137-145); Total Bilirubin 0.7 mg/dL (0.2-1.3); Total Protein 7.9 g/dL (6.3-8.2)
--- NOTE | 2024-12-01 21:01 | XR ---
EXAMINATION TYPE: XR chest 2V DATE OF EXAM: 12/01/2024 8:25 PM COMPARISON: 04/21/2023 CLINICAL INDICATION: Male, 23 years old with history of chest pain; [facility] TECHNIQUE: XR chest 2V Frontal and lateral views of the chest. FINDINGS: Lungs/Pleura: There is no evidence of pleural effusion, focal consolidation, or pneumothorax. Pulmonary vascularity: Unremarkable. Heart/mediastinum: Cardiomediastinal silhouette is unremarkable. Musculoskeletal: No acute osseous pathology. IMPRESSION: No acute cardiopulmonary disease/process. [facility], , 12/01/2024 8:59 PM
[2024-12-01 21:21] LABS: Influenza A Not Detected (Not Detectd); Influenza B Not Detected (Not Detectd); RSV Not Detected (Not Detectd)
[2024-12-01 21:30] VITALS: BP 145/84; PULSE 85; RESP 16
[2024-12-01] MEDS: IBUPROFEN 800 MG TAB PO STA (21:30)
== END 2024-12-01 22:17 | disposition left against medical advice (07) ==
LOC: EC 19:23
DX: R07.89 Other chest pain (principal); F17.290 Nicotine dependence, other tobacco product, uncomplicated; Z88.0 Allergy status to penicillin; Z53.29 Procedure and treatment not carried out because of patient's decision for other reasons
CPT/HCPCS: 36415; 71046; 80053; 84484; 85025; 85379; 87636; 93005; 99285

== ENCOUNTER 2024-12-04 11:39 | Emergency (ER) | payer OTHER ==
[2024-12-04 11:44] VITALS: RESP 20
--- NOTE | 2024-12-04 12:11 | ED ---
General Adult HPI - General Chief complaint: Recheck/Abnormal Lab/Rx Stated complaint: Abn labs Time Seen by Provider: 12/04/24 11:45 Source: patient, RN notes reviewed Mode of arrival: ambulatory Limitations: no limitations - History of Present Illness Initial comments: 23-year-old presents to the emergency department for evaluation of left arm pain and chest pain. Patient states that this started 4 days ago. There is pain is in the left arm which is tender to palpation. He notes that the pain goes to the chest. He does endorse difficulty breathing starting last night. The patient was evaluated in the emergency department at the time of the initial pain starting but left against medical advice prior to being able to speak with the provider about the results of testing. Denies any recent fever, chills. Patient is on testosterone replacement. No history of blood clotting disorder. No recent surgeries. - Related Data Home Medications Medication Instructions Recorded Confirmed Testosterone Cypionate 100 mg IM Q14D 06/20/21 12/04/24 [Depo-Testosterone] Letrozole [Femara] 5 mg PO HS 12/04/24 12/04/24 hydrOXYzine HCL [Atarax] 25 mg PO HS 12/04/24 12/04/24 Allergies Allergy/AdvReac Type Severity Reaction Status Date / Time Penicillins Allergy Unknown Verified 12/04/24 12:37 Childhood Review of Systems ROS Statement: Those systems with pertinent positive or pertinent negative responses have been documented in the HPI. ROS Other: All systems not noted in ROS Statement are negative. Past Medical History Past Medical History: Asthma, Hypertension, Seizure Disorder History of Any Multi-Drug Resistant Organisms: None Reported Past Surgical History: No Surgical Hx Reported Additional Past Surgical History / Comment(s): mastectomy bilat 07/04/22 Past Psychological History: Anxiety Smoking Status: Vaper Past Alcohol Use History: None Reported Past Drug Use History: None Reported General Exam Limitations: no limitations General appearance: alert, in no apparent distress Head exam: Present: atraumatic, normocephalic, normal inspection Eye exam: Present: normal appearance, PERRL, EOMI. Absent: scleral icterus, conjunctival injection, periorbital swelling ENT exam: Present: normal exam, mucous membranes moist Neck exam: Present: normal inspection. Absent: tenderness, meningismus, lymphadenopathy Respiratory exam: Present: normal lung sounds bilaterally. Absent: respiratory distress, wheezes, rales, rhonchi, stridor Cardiovascular Exam: Present: regular rate, normal rhythm, normal heart sounds. Absent: systolic murmur, diastolic murmur, rubs, gallop, clicks GI/Abdominal exam: Present: soft. Absent: distended, tenderness, guarding, rebound, rigid Extremities exam: Present: full ROM, tenderness (Anterior medial left arm into the axilla), normal capillary refill. Absent: pedal edema, joint swelling, calf tenderness Neurological exam: Present: alert, oriented X3 Psychiatric exam: Present: normal affect, normal mood Skin exam: Present: warm, dry, intact, normal color. Absent: rash Course Vital Signs 12/04/24 12/04/24 11:41 14:06 Temperature 98.9 F 98.3 F Pulse Rate 115 H 78 Respiratory 20 20 Rate Blood Pressure 153/85 139/85 O2 Sat by Pulse 96 98 Oximetry Medical Decision Making - Medical Decision Making Was pt. sent in by a medical professional or institution (, PA, [employer], urgent care, hospital, or shelter...) When possible be specific @ -No Did you speak to anyone other than the patient for history (EMS, parent, family, police, friend...)? What history was obtained from this source @ -No Did you review nursing and triage notes (agree or disagree)? Why? @ -I reviewed and agree with nursing and triage notes Were old charts reviewed (outside hosp., previous admission, EMS record, old EKG, old radiological studies, urgent care reports/EKG's, shelter records)? Report findings @ -No old charts were reviewed Differential Diagnosis (chest pain, altered mental status, abdominal pain women, abdominal pain men, vaginal bleeding, weakness, fever, dyspnea, syncope, headache, dizziness, GI bleed, back pain, seizure, CVA, palpatations, mental health, musculoskeletal)? @ -Differential Chest Pain: Stable Angina, Unstable Angina, STEMI, NSTEMI Aortic Dissection, Pneumothorax, Musculoskeletal, Esophageal Spasm GERD, Cholecystitis, Pancreatitis, Zoster, this is not meant to be an all-inclusive list. EKG interpreted by me (3pts min.). @ -EKG [id number] shows sinus rhythm rate 94, NV 132, QRS 108, QT/QTc [id number] X-rays interpreted by me (1pt min.). @ -None done CT interpreted by me (1pt min.). @ -CT of the chest shows no evidence of pulmonary embolism, no acute process. U/S interpreted by me (1pt. min.). @ -None done What testing was considered but not performed or refused? (CT, X-rays, U/S, labs)? Why? @ -None What meds were considered but not given or refused? Why? @ -None Did you discuss the management of the patient with other professionals (professionals i.e. , PA, MACHINE [employer], lab, RT, psych nurse, social secretary, fish bait picker, teacher, fire management officer, case management associate)? Give summary @ -No Was smoking cessation discussed for >3mins.? @ -No Was critical care preformed (if so, how long)? @ -No Were there social determinants of health that impacted care today? How? (Homelessness, low income, unemployed, alcoholism, drug addiction, transportation, low edu. Level, literacy, decrease access to med. care, care home, rehab)? @ -No Was there de-escalation of care discussed even if they declined (Discuss DNR or withdrawal of care, Hospice)? DNR status @ -No What co-morbidities impacted this encounter? (DM, HTN, Smoking, COPD, CAD, Cancer, CVA, ARF, Chemo, Hep., AIDS, mental health diagnosis, sleep apnea, morbid obesity)? @ -None Was patient admitted / discharged? Hospital course, mention meds given and route, prescriptions, significant lab abnormalities, going to OR and other pertinent info. @ -Discharge. Patient presented to the emergency department for evaluation of left arm and chest pain. Is been going on for 4 days. He was evaluated here initially for this 4 days ago. He had normal CBC, CMP, negative troponin. D- dimer was 0.5. The patient left AGAINST MEDICAL ADVICE prior to completion of the workup. Repeat labs performed today revealed no significant leukocytosis, hemoglobin stable; normal coagulation studies; CMP in actionable, negative troponin. Patient underwent a CTA of the chest which revealed no evidence of acute process, no evidence of pulmonary embolism. Patient is otherwise low risk and will be discharged home advised follow-up to PCP. He is understanding agreeable with this plan. Patient stable at time of discharge. Case discussed with Dr. Connors Undiagnosed new problem with uncertain prognosis? @ -No Drug Therapy requiring intensive monitoring for toxicity (Heparin, Nitro, Insulin, Cardizem)? @ -No Were any procedures done? @ -No Diagnosis/symptom? @ -Chest pain Acute, or Chronic, or Acute on Chronic? @ -Acute Uncomplicated (without systemic symptoms) or Complicated (systemic symptoms)? @ -Uncomplicated Side effects of treatment? @ -No Exacerbation, Progression, or Severe Exacerbation? @ -No Poses a threat to life or bodily function? How? (Chest pain, [place], [place], pneumonia, PE, COPD, DKA, ARF, appy, cholecystitis, CVA, Diverticulitis, Homicidal, Suicidal, threat to staff... and all critical care pts) @ -No - Lab Data Result diagrams: 12/04/24 12:07 12/04/24 12:07 Lab Results 12/04/24 12/04/24 12/04/24 Range/Units 12:07 12:07 12:07 WBC 8.0 (3.8-10.6) k/uL RBC 6.05 H (4.30-5.90) m/uL Hgb 17.3 (13.0-17.5) gm/dL Hct 48.2 (39.0-53.0) % MCV 79.6 L (80.0-100.0) fL MCH 28.5 (25.0-35.0) pg MCHC 35.9 (31.0-37.0) g/dL RDW 12.5 (11.5-15.5) % Plt Count 255 (150-450) k/uL MPV 7.1 Neutrophils % 66 % Lymphocytes % 23 % Monocytes % 6 % Eosinophils % 2 % Basophils % 1 % Neutrophils # 5.3 (1.3-7.7) k/uL Lymphocytes # 1.8 (1.0-4.8) k/uL Monocytes # 0.5 (0-1.0) k/uL Eosinophils # 0.1 (0-0.7) k/uL Basophils # 0.1 (0-0.2) k/uL PT 10.3 (10.0-12.5) sec INR 0.9 (<1.2) APTT 24.6 (22.0-30.0) sec Sodium 141 (137-145) mmol/L Potassium 4.1 (3.5-5.1) mmol/L Chloride 103 (98-107) mmol/L Carbon Dioxide 28 (22-30) mmol/L Anion Gap 10 mmol/L BUN 12 (9-20) mg/dL Creatinine 1.03 (0.66-1.25) mg/dL Est GFR (CKD-EPI)AfAm >90 (>60 ml/min/1.73 sqM) Est GFR (CKD-EPI)NonAf >90 (>60 ml/min/1.73 sqM) Glucose 91 (74-99) mg/dL Calcium 9.6 (8.4-10.2) mg/dL Magnesium 2.1 (1.6-2.3) mg/dL Total Bilirubin 0.7 (0.2-1.3) mg/dL AST 33 (17-59) U/L ALT 48 (4-49) U/L Alkaline Phosphatase 52 (38-126) U/L Troponin I (0.000-0.034) ng/mL Total Protein 7.5 (6.3-8.2) g/dL Albumin 4.6 (3.5-5.0) g/dL 12/04/24 Range/Units 12:07 WBC (3.8-10.6) k/uL RBC (4.30-5.90) m/uL Hgb (13.0-17.5) gm/dL Hct (39.0-53.0) % MCV (80.0-100.0) fL MCH (25.0-35.0) pg MCHC (31.0-37.0) g/dL RDW (11.5-15.5) % Plt Count (150-450) k/uL MPV Neutrophils % % Lymphocytes % % Monocytes % % Eosinophils % % Basophils % % Neutrophils # (1.3-7.7) k/uL Lymphocytes # (1.0-4.8) k/uL Monocytes # (0-1.0) k/uL Eosinophils # (0-0.7) k/uL Basophils # (0-0.2) k/uL PT (10.0-12.5) sec INR (<1.2) APTT (22.0-30.0) sec Sodium (137-145) mmol/L Potassium (3.5-5.1) mmol/L Chloride (98-107) mmol/L Carbon Dioxide (22-30) mmol/L Anion Gap mmol/L BUN (9-20) mg/dL Creatinine (0.66-1.25) mg/dL Est GFR (CKD-EPI)AfAm (>60 ml/min/1.73 sqM) Est GFR (CKD-EPI)NonAf (>60 ml/min/1.73 sqM) Glucose (74-99) mg/dL Calcium (8.4-10.2) mg/dL Magnesium (1.6-2.3) mg/dL Total Bilirubin (0.2-1.3) mg/dL AST (17-59) U/L ALT (4-49) U/L Alkaline Phosphatase (38-126) U/L Troponin I <0.012 (0.000-0.034) ng/mL Total Protein (6.3-8.2) g/dL Albumin (3.5-5.0) g/dL Disposition Clinical Impression: Chest pain Disposition: HOME SELF-CARE Condition: Stable Instructions (If sedation given, give patient instructions): Chest Pain (ED) Additional Instructions: Please follow-up with your primary care provider. Return to the emergency department for new or worsening symptoms. Is patient prescribed a controlled substance at d/c from ED?: No Referrals: Mag King DO [Primary Care Provider] - 1-2 days
[2024-12-04] MEDS: LORazepam 2 MG/ML INJ IV STA (12:17)
[2024-12-04] MEDS: SODIUM CHLORIDE 0.9% 1,000 ML IV STA (12:17)
[2024-12-04 12:36] LABS: Basophils # (A) 0.1 k/uL (0-0.2); Basophils % (A) 1 %; Eosinophils # (A) 0.1 k/uL (0-0.7); Eosinophils % (A) 2 %; HCT 48.2 % (39.0-53.0); HGB 17.3 gm/dL (13.0-17.5); Lymphocytes # (A) 1.8 k/uL (1.0-4.8); Lymphocytes % (A) 23 %; MCH 28.5 pg (25.0-35.0); MCHC 35.9 g/dL (31.0-37.0); MCV 79.6 fL (80.0-100.0); Mean Platelet Volume 7.1; Monocytes # (A) 0.5 k/uL (0-1.0); Monocytes % (A) 6 %; Neutrophils # (A) 5.3 k/uL (1.3-7.7); Neutrophils % (A) 66 %; Platelet Count 255 k/uL (150-450); RBC 6.05 m/uL (4.30-5.90); RDW 12.5 % (11.5-15.5)
[2024-12-04 12:39] LABS: ALT 48 U/L (4-49); AST 33 U/L (17-59); African American GFR (CKD) >90 (>60 ml/min/1.73 sqM); Albumin 4.6 g/dL (3.5-5.0); Alkaline Phosphatase 52 U/L (38-126); Anion Gap 10 mmol/L; Blood Urea Nitrogen 12 mg/dL (9-20); Calcium 9.6 mg/dL (8.4-10.2); Carbon Dioxide 28 mmol/L (22-30); Chloride 103 mmol/L (98-107); Glucose 91 mg/dL (74-99); Magnesium 2.1 mg/dL (1.6-2.3); Non-African American GFR(CKD) >90 (>60 ml/min/1.73 sqM); Potassium 4.1 mmol/L (3.5-5.1); Sodium 141 mmol/L (137-145); Total Bilirubin 0.7 mg/dL (0.2-1.3); Total Protein 7.5 g/dL (6.3-8.2)
[2024-12-04 12:52] LABS: INR 0.9 (<1.2); Partial Thromboplastin Time 24.6 sec (22.0-30.0); Prothrombin Time 10.3 sec (10.0-12.5)
--- NOTE | 2024-12-04 13:09 | CT ---
EXAMINATION TYPE: CT chest angio for PE DATE OF EXAM: 12/04/2024 COMPARISON: None CLINICAL INDICATION: Male, 23 years old with history of chest pain; PHH, Chest pain, SOB, rule out cl ot. PT states he has issue with LT side heart valve, SOB or PAIN TECHNIQUE: Ct angiogram of the chest performed with with IV Contrast, patient injected with 100 mL of Isovue 370 . MIP images are created and reviewed. CT DLP: 478.[address] CTDI: mGy Automated exposure control for dose reduction was used. FINDINGS: LUNGS: The lungs are grossly clear, there is no concerning parenchymal mass or nodule identified. T here is no pleural effusion or pneumothorax seen. The tracheobronchial tree is patent. MEDIASTINUM: There is satisfactory enhancement of the pulmonary artery and its branches, there is no CT evidence for pulmonary embolism. There are no greater than 1 cm hilar or mediastinal lymph nodes. No pericardial effusion is seen. Limited scanning through the upper abdomen reveals no abnormality. The osseous structures are intact. IMPRESSION: 1. No evidence of pulmonary embolism. 2. No acute cardiopulmonary disease. Follow-up recommendations for incidental pulmonary nodules are per [facility] [place] [employer] or [employer]. [facility], , 12/04/2024 1:06 PM
[2024-12-04 14:08] VITALS: BP 139/85; PULSE 78; TEMP 98.3
== END 2024-12-04 14:10 | disposition home or self-care (01) ==
LOC: EC 11:39
DX: M79.602 Pain in left arm (principal); R07.9 Chest pain, unspecified; F17.290 Nicotine dependence, other tobacco product, uncomplicated; Z53.29 Procedure and treatment not carried out because of patient's decision for other reasons; Z88.0 Allergy status to penicillin
CPT/HCPCS: 36415; 93005; 80053; 83735; 84484; 85025; 85610; 85730; 71275; 99284; 96374; 96361 ×2; J2060; Q9967